=== PATIENT | male | born 1950 | race Caucasian/White ===

== ENCOUNTER → 2018-03-31 | Outpatient (CLI) | payer MEDICARE, OTHER ==
[~2018-03-31] MED LIST: CYAN10007 IM; D50KC PO; LISI10TA PO; MULT-963 PO; OMEP20CA12 PO
--- NOTE | 2018-03-31 12:17 | Diagnostic Imaging Report ---
PROCEDURE: US Thyroid. TECHNIQUE: Multiple real-time grayscale images were obtained of the thyroid in various projections. INDICATION: Thyromegaly. The right lobe of thyroid measures 4.6 x 2.0 x 2.0 cm and the left lobe measures 4.1 x 1.5 x 1.5 cm. Isthmus is 4 mm in thickness. Both lobes are fairly homogeneous. There appears to be a hypoechoic nodule in the mid right lobe measuring approximately 6 mm x 7 mm. No internal vascularity or microcalcifications are present. Left lobe is unremarkable. IMPRESSION: Subcentimeter right lobe thyroid nodule. Followup in 6 months could be performed to confirm stability. Dictated by: Dictated on workstation # [id number]
== END ==
LOC: RAD 10:55
PROVIDERS: ATTEND Nurse Practitioner Family
DX: E04.1 Nontoxic single thyroid nodule (principal)
CPT/HCPCS: 76536

== ENCOUNTER → 2018-04-24 | Outpatient (CLI) | payer MEDICARE, OTHER ==
[2018-04-24 08:07] VITALS: BP 166/105
[2018-04-24 08:22] VITALS: BP 184/79
[2018-04-24 08:23] VITALS: BP 223/95
[2018-04-24 08:24] VITALS: BP 186/99
--- NOTE | 2018-04-24 14:50 | STRESS TEST ---
DATE OF SERVICE: 04/24/2018 NUCLEAR MYOVIEW REPORT REFERRING PHYSICIAN: Dr. Araya. INDICATION: Chest pain. In summary, the patient was injected with 10.45 mCi of technetium-99 Myoview and the resting images were obtained. With peak stress level, the patient was injected with 30.8 mCi of technetium-99 Myoview. The test was supervised and monitored by Dr. Araya. The resting and stress images were reviewed and compared in the short axis, horizontal long axis, and vertical long axis views. Review of the images showed diaphragmatic attenuation with typical male pattern. No significant ischemia or infarction was noted. SSS is 0. TID value 0.96. On the gated images, the left ventricle appeared to be in normal size with normal contractility. Calculated ejection fraction 59%. CONCLUSION: 1. No ischemia or infarction on SPECT images. 2. Normal left ventricular size with normal contractility. Calculated ejection fraction 59%. Job ID: [id number] DocumentID: [id number] Dictated Date: 04/24/2018 12:23:05 [employer] Date: 04/24/2018 14:49:36 Dictated By: MITCHELL WORKMAN MD
== END ==
LOC: CARD 06:46
PROVIDERS: ATTEND Nurse Practitioner Family
DX: R07.89 Other chest pain (principal); I10 Essential (primary) hypertension; E01.0 Iodine-deficiency related diffuse (endemic) goiter
CPT/HCPCS: 78452; 93017

== ENCOUNTER → 2019-10-01 | Outpatient (CLI) | payer MEDICARE, OTHER ==
[~2019-10-01] VITALS: Ht 185 cm; Wt 109.0 kg
[~2019-10-01] MED LIST changes: +CATHETER FLUSH 10 ML SYR IV PRN; +REGADENOSON 0.4 MG/5 ML SYR (LEXISCAN) IV ONE
[2019-10-01 08:06] VITALS: BP 175/97
[2019-10-01 08:11] VITALS: BP 164/94
--- NOTE | 2019-10-02 09:16 | Cardiology Stress Test Report ---
Stress Test Report Date of Procedure/Referring: Date of Procedure: Oct 01, 2019 PCP Arthur Araya DO Admitting Physician Arthur Araya DO Indications: Chest pain Baseline Vital Signs Vital Signs Date Time Temp Pulse Resp B/P (MAP) Pulse Ox O2 Delivery O2 Flow Rate FiO2 10/01/19 08:06 67 175/97 (123) 98 Summary: Patient receive a resting and stress dose of Myoview, images were acquired and reviewed in the short axis view, horizontal long axis view and vertical long axis view. TID: 0.94 SSS: 1 SDS: 1 EF: 57 1. No significant ischemia or infarction on SPECT images 2. Normal left ventricular size and systolic function, EF 57 percent MITCHELL WORKMAN MD Oct 02, 2019 09:16
== END ==
LOC: CARD 06:25
PROVIDERS: ATTEND Internal Medicine
DX: I10 Essential (primary) hypertension (principal); R06.09 Other forms of dyspnea; R07.89 Other chest pain
CPT/HCPCS: 78452; 93017; A9502